=== PATIENT | female | born 1985 | race American Indian/Alaskan Native ===

== ENCOUNTER 2022-03-27 17:03 | Emergency (ER) | payer OTHER ==
[2022-03-27] MEDS ORDERED: ASPIRIN 325 MG TAB PO ONE (19:46)
[2022-03-27 20:19] LABS: Basophils % (Auto) 0.2 % (0.0-1.8); Eosinophils # (Auto) 0.5 K/mm3 (0.0-0.4); Eosinophils % (Auto) 4.1 % (0.0-4.3); Hematocrit 46.2 % (30.3-42.9); Hemoglobin 15.1 gm/dl (10.1-14.3); Lymphocytes % (Auto) 25.9 % (13.4-35.0); Mean Corpuscular HGB Conc 33 % (30-34); Mean Corpuscular Volume 88 fl (79-97); Monocytes # (Auto) 0.7 K/mm3 (0.0-0.8); Monocytes % (Auto) 6.2 % (0.0-7.3); Platelet Count 325 K/mm3 (140-440); Red Blood Count 5.25 M/mm3 (3.65-5.03); Red Cell Distribution Width 14.6 % (13.2-15.2)
[2022-03-27 20:40] LABS: Alanine Aminotransferase 67 units/L (7-56); Albumin 4.3 g/dL (3.9-5); BUN/Creatinine Ratio 8; Blood Urea Nitrogen 7 mg/dL (7-17); Calcium 9.8 mg/dL (8.4-10.2); Hemolysis Index 9
--- NOTE | 2022-03-27 20:59 | XRay Report ---
CHEST 2 VIEWS INDICATION / CLINICAL INFORMATION: chest pain. COMPARISON: None available. FINDINGS: SUPPORT DEVICES: None. HEART / MEDIASTINUM: No significant abnormality. LUNGS / PLEURA: No significant pulmonary or pleural abnormality. No pneumothorax. ADDITIONAL FINDINGS: No significant additional findings. IMPRESSION: 1. No acute findings. Signer Name: Eduardo Sharpe MD Signed: 03/27/2022 8:55 PM Workstation Name: [id number]
[2022-03-28] MEDS ORDERED: IBUPROFEN 800 MG TAB PO ONE (00:55)
[2022-03-28] MEDS ORDERED: LIDOCAINE VISCOUS 2% 15 ML ORAL LIQD PO ONE (00:55)
[2022-03-28] MEDS ORDERED: ALUM-MAG HYDROXIDE-SIMETHICONE 200-200-20MG/5ML ORAL LIQD 30 ML PO ONE (00:55)
--- NOTE | 2022-03-28 01:00 | Emergency Department Report ---
ED General Adult HPI - General Chief complaint: Chest Pain Stated complaint: ULCER/CHEST PAIN/BACK Time Seen by Provider: 03/28/22 00:54 Source: patient Mode of arrival: Ambulatory Limitations: No Limitations - History of Present Illness Initial comments: Patient 36-year-old female with history of GERD and questionable peptic ulcer who presents for epigastric pain 4/10 x1 week. Patient rates symptoms at 4/10 intermittent. Symptoms are exacerbated by p.o. intake. Symptoms are relieved by nothing tried. Patient seen in urgent care yesterday treated with Toradol and Zofran states symptoms improved. Current pain level is 3/10. Patient is tolerating p.o. intake without nausea vomiting however there have been no diaphoresis no dizziness or lightheadedness. Patient denies substance or smoking there is been no fevers no chills no productive cough. Patient not currently taking medications for GERD. Last menstrual cycle 1 week ago - Related Data Previous Rx's Medication Instructions Recorded Last Taken Type Metoclopramide [Reglan] 10 mg PO Q6H PRN #30 03/28/22 Unknown Rx diphenhydrAMINE [Benadryl CAP] 25 mg PO Q6HR PRN #30 capsule 03/28/22 Unknown Rx Allergies Allergy/AdvReac Type Severity Reaction Status Date / Time No Known Allergies Allergy Verified 03/27/22 19:45 ED Review of Systems ROS: Stated complaint: ULCER/CHEST PAIN/BACK Other details as noted in HPI Constitutional: denies: chills, fever, malaise Eyes: denies: eye pain, eye discharge, vision change ENT: denies: ear pain, throat pain Respiratory: denies: cough, shortness of breath, wheezing Cardiovascular: denies: chest pain, palpitations Endocrine: no symptoms reported Gastrointestinal: abdominal pain, nausea. denies: vomiting, diarrhea, constipation, hematemesis, melena, hematochezia Genitourinary: denies: urgency, dysuria, frequency, hematuria, discharge Musculoskeletal: denies: back pain, joint swelling, arthralgia Skin: denies: rash, lesions Neurological: denies: headache, weakness, paresthesias, vertigo Psychiatric: denies: anxiety, depression Hematological/Lymphatic: denies: easy bleeding, easy bruising ED Past Medical Hx - Past Medical History Hx GERD: Yes - Medications Home Medications: Home Medications Medication Instructions Recorded Confirmed Last Taken Type Metoclopramide [Reglan] 10 mg PO Q6H PRN #30 03/28/22 Unknown Rx diphenhydrAMINE [Benadryl CAP] 25 mg PO Q6HR PRN #30 capsule 03/28/22 Unknown Rx ED Physical Exam - General Limitations: No Limitations General appearance: alert, in no apparent distress - Head Head exam: Present: normocephalic, normal inspection - Eye Eye exam: Present: normal appearance, EOMI Pupils: Present: normal accommodation - ENT ENT exam: Present: normal orophraynx, mucous membranes moist - Neck Neck exam: Present: normal inspection, full ROM. Absent: tenderness, lymphadenopathy - Respiratory Respiratory exam: Present: normal lung sounds bilaterally. Absent: respiratory distress, wheezes, stridor, chest wall tenderness - Cardiovascular Cardiovascular Exam: Present: regular rate, normal rhythm, normal heart sounds. Absent: systolic murmur, diastolic murmur, rubs, gallop - GI/Abdominal GI/Abdominal exam: Present: soft, tenderness (Mild reproducible epigastric tenderness to deep palpation only there is no rebound no Palma no Rovsing no McBurney sign), normal bowel sounds. Absent: guarding, rebound, rigid, organomegaly, bruit, hernia - Expanded GI/Abdominal Exam Expanded GI/Abdominal exam: Absent: psoas sign, obturator sign, heel tap sign, Palma's sign, Rovsing's sign, tenderness at Mcburney's Point, ascites - Rectal Rectal exam: Present: deferred - Extremities Exam Extremities exam: Present: normal inspection, full ROM, normal capillary refill. Absent: tenderness - Back Exam Back exam: Present: normal inspection, full ROM. Absent: tenderness, CVA tenderness (R), CVA tenderness (L) - Neurological Exam Neurological exam: Present: alert, oriented X3, CN II-XII intact, normal gait, reflexes normal. Absent: motor sensory deficit - Psychiatric Psychiatric exam: Present: normal affect, normal mood - Skin Skin exam: Present: warm, dry, intact, normal color. Absent: rash ED Course Vital Signs 03/27/22 19:02 Temperature 99.5 F Pulse Rate 65 Respiratory 18 Rate Blood Pressure 156/83 O2 Sat by Pulse 98 Oximetry ED Medical Decision Making - Lab Data Result diagrams: 03/27/22 19:54 05/17/22 19:54 Labs 03/27/22 03/27/22 03/27/22 19:54 19:54 21:06 WBC 11.8 H RBC 5.25 H Hgb 15.1 H Hct 46.2 H MCV 88 MCH 29 MCHC 33 RDW 14.6 Plt Count 325 Lymph % (Auto) 25.9 Dare % (Auto) 6.2 Eos % (Auto) 4.1 Baso % (Auto) 0.2 Lymph # (Auto) 3.0 Dare # (Auto) 0.7 Eos # (Auto) 0.5 H Baso # (Auto) 0.0 Seg Neutrophils % 63.6 Seg Neutrophils # 7.5 Sodium 137 Potassium 3.5 L Chloride 100.8 Carbon Dioxide 25 Anion Gap 15 BUN 7 Creatinine 0.9 Estimated GFR > 60 BUN/Creatinine Ratio 8 Glucose 95 Calcium 9.8 Total Bilirubin 0.40 AST 42 H ALT 67 H Alkaline Phosphatase 82 Troponin T < 0.010 < 0.010 Total Protein 7.4 Albumin 4.3 Albumin/Globulin Ratio 1.4 - EKG Data EKG shows normal: sinus rhythm, axis, intervals, QRS complexes, ST-T waves Rate: normal - EKG Data When compared to previous EKG there are: no significant change Interpretation: normal EKG (Normal sinus rhythm no ST elevated NM interpreted by ED attending ) - Radiology Data Radiology results: report reviewed, image reviewed CHEST 2 VIEWS INDICATION / CLINICAL INFORMATION: chest pain. COMPARISON: None available. FINDINGS: SUPPORT DEVICES: None. HEART / MEDIASTINUM: No significant abnormality. LUNGS / PLEURA: No significant pulmonary or pleural abnormality. No pneumothorax. ADDITIONAL FINDINGS: No significant additional findings. IMPRESSION: 1. No acute findings. Signer Name: Eduardo Sharpe MD Signed: 03/27/2022 8:55 PM Workstation Name: [id number] Transcribed By: Dictated By: Eduardo Sharpe MD Electronically Authenticated By: Eduardo Sharpe MD Signed Date/Time: 03/27/222054 DD/ 53 TD/TT: - Medical Decision Making Chest x-ray normal no infiltrates no opacities. EKG normal normal sinus rhythm no ST elevated NM interpreted by ED attending. Labs are unremarkable, troponins are less than 0.01x2 heart score is 0. Plan DC to home. Follow-up with primary care doctor in 2 to 3 days. Return to emergency department should symptoms worsen. Critical care attestation.: If time is entered above; I have spent that time in minutes in the direct care of this critically ill patient, excluding procedure time. ED Disposition Clinical Impression: GERD (gastroesophageal reflux disease) Qualifiers: Esophagitis presence: without esophagitis Qualified Code(s): K21.9 - Gastro- esophageal reflux disease without esophagitis Abdominal pain Qualifiers: Abdominal location: generalized Qualified Code(s): R10.84 - Generalized abdominal pain Disposition: HOME / SELF CARE / HOMELESS Is pt being admited?: No Does the pt Need Aspirin: No Condition: Stable Instructions: Food Choices for Gastroesophageal Reflux Disease, Child, [id number], Gastroesophageal Reflux Disease, Adult Additional Instructions: Take medications as prescribed, follow-up with your doctor 2 to 3 days. Return to emergency department should symptoms worsen Prescriptions: diphenhydrAMINE [Benadryl CAP] 25 mg PO Q6HR PRN #30 capsule PRN Reason: Nausea Metoclopramide [Reglan] 10 mg PO Q6H PRN #30 PRN Reason: Nausea Referrals: [facility] [Provider Group] - 3-5 Days JULIUS EVANS MD [Staff Physician] - 3-5 Days Forms: Work/School Release Form(ED) Time of Disposition: 01:21
[2022-03-28 01:28] VITALS: BP 152/81
--- NOTE | 2022-03-28 11:35 | Electrocardiograph Report ---
[facility] Test Date: 2022-03-27 Test Time: 19:08:34 Pat Name: ELLA CLEVELAND Department: Room: Gender: F [employer]ist: : [id number] Requested By: ANITRA YOO Order Number: [id number] Reading MD: Deshaun Bond Measurements Intervals [place] Rate: 66 P: 40 MI: 146 QRS: 28 QRSD: 73 T: 36 QT: 411 QTc: 432 Interpretive Statements Sinus rhythm No previous ECG available for comparison Electronically Signed On 03-28-2022 11:35:06 EDT by Deshaun Bond
== END 2022-03-28 01:28 | disposition home or self-care (01) ==
LOC: ED 17:03
DX: K21.9 Gastro-esophageal reflux disease without esophagitis (principal)
CPT/HCPCS: 36415; 71046; 80053; 84484; 85025; 93005; 99284